=== PATIENT | female | born 1970 | race Hispanic/Latino ===

== ENCOUNTER 2024-11-04 13:59 | Emergency (ER) | payer OTHER ==
[2024-11-04] MEDS ORDERED: TETRACAINE HCL 0.5% 4ML OPTH ONE (14:31)
[2024-11-04] MEDS ORDERED: FLUORESCEIN SODIUM 1 MG/WRAP ONE (14:32)
--- NOTE | 2024-11-04 15:16 | EDPHYS ---
Physician Documentation [facility] Name: Shayla Richey Age: 54 yrs Sex: Female : 1970 Arrival Date: 11/04/2024 Time: 13:59 Bed 2 Private MD: ED Physician Maria Eugenia Chapa HPI: 11/04 17:37 This 54 yrs old Female presents to ER via Ambulatory with complaints of Eye dr5 Injury. 17:37 The patient is experiencing blurred vision, pain, redness, The patient sustained an dr5 abrasion. 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 Patient is a 54-year-old female coming in with a left eye injury after hitting it with a nail that she was trying applied to wall. Patient reports this occurred 1 hour prior to arrival. Patient complaining of tearing and left eye pain with mild blurry vision. Historical: - Allergies: 14:16 No Known Allergies; ll1 - Home Meds: 14:16 None [Active]; ll1 - PMHx: 14:16 None; ll1 - Immunization history:: Adult Immunizations up to date. - Social history:: Smoking status: Patient denies any tobacco usage or history of. ROS: 17:37 Constitutional: as per hpi dr5 Exam: 17:37 Visual Acuity: I have reviewed the nursing documentation. dr5 17:37 Constitutional: This is a well developed, well nourished patient who is awake, alert, and in no acute distress. Head/Face: Normocephalic, atraumatic. Neck: Trachea midline, no thyromegaly or masses palpated, and no cervical lymphadenopathy. Supple, full range of motion without nuchal rigidity, or vertebral point tenderness. No Meningismus. Chest/axilla: Normal chest wall appearance and motion. Nontender with no deformity. No lesions are appreciated. Cardiovascular: Regular rate and rhythm with a normal S1 and S2. Normal PMI, no JVD. No pulse deficits. Back: No spinal tenderness. No costovertebral tenderness. Full range of motion. Skin: Warm, dry with normal turgor. Normal color with no rashes, no lesions, and no evidence of cellulitis. Neuro: Awake and alert, GCS 15, oriented to person, place, time, and situation. Cranial nerves II-XII grossly intact. Motor strength 5/5 in all extremities. Sensory grossly intact. Cerebellar exam normal. Normal gait. 17:37 Eyes: Periorbital structures: appear normal, Pupils: no acute changes, equal, round, and reactive to light and accomodation, Extraocular movements: no acute changes, Conjunctiva: injected, Corneas: abrasion, that is small, at 3 o'clock, foreign body, is not appreciated, a fluorescein strip employed to appreciate the findings, Vital Signs: 14:16 BP 147 / 73; Pulse 63; Resp 16; Temp 98; Pulse Ox 100% ; Height 5 ft. 7 in. ; Pain 8/10;ll1 14:17 BP 147 / 68; Pulse 78; Pulse Ox 99% on R/A; rs6 14:46 BP 131 / 69; Pulse 58; Resp 16; Pulse Ox 99% on R/A; hb 14:16 Pain Scale: Adult ll1 Procedures: 17:37 Eye Exam: Tetracaine and fluorescein strip used. dr5 MDM: 14:14 Medical Screening Exam initiated dr5 17:37 Differential diagnosis: Corneal abrasion of Corneal ulcer of Foreign body in. Data dr5 reviewed: vital signs, nurses notes. 17:37 I considered the following discharge prescriptions or medication management in the dr5 emergency department Medications were administered in the Emergency Department. See MAR. Counseling: I had a detailed discussion with the patient and/or guardian regarding the historical points, exam findings, and any diagnostic results supporting the discharge/admit diagnosis, the presence of at least one elevated blood pressure reading (>120/80) during this emergency department visit, the need for outpatient follow up, for definitive care, an opthalmologist, a family practitioner, to return to the emergency department if symptoms worsen or persist or if there are any questions or concerns that arise at home. ED course: Antibiotics prescribed for patient. Mild corneal abrasion noted at 3:00. Recommended patient follow-up with eye doctor on Wednesday for further management. Blurry vision and pain has resolved and is feeling much better. No puncture wound. Negative Samir sign. All questions answered. Strict ER precautions given.. 11/04 14:36 Order name: Eye Tray; Complete Time: 14:38 dr5 11/04 14:36 Order name: Fluoresene Opth strip; Complete Time: 14:38 dr5 Administered Medications: 14:48 Drug: Tetracaine Ophthalmic Drops 0.5 % 1 drops Ophthalmic once Route: Ophthalmic; bp Site: left eye; Disposition Summary: 11/04/24 15:15 Discharge Ordered Notes: Location: Home dr5 Condition: Stable dr5 Diagnosis - Injury of conjunctiva and corneal abrasion without foreign body, left eye dr5 Followup: dr5 - With: Emergency Department - When: As needed - Reason: Worsening of condition Followup: dr5 - With: Private Physician - When: 1 - 2 days - Reason: Recheck today's complaints, Continuance of care, Re-evaluation by your physician Discharge Instructions: - Discharge Summary Sheet dr5 - Corneal Abrasion dr5 Forms: - Work release form dr5 - Medication Reconciliation Form dr5 - Antibiotic Education dr5 - Prescription Opioid Use dr5 - Patient Portal Instructions dr5 - Leadership Thank You Letter dr5 Prescriptions: - Ocuflox 0.3 % Ophthalmic Drops - instill 2 drops OPHTHALMIC route every 6 hours for 2 days; 15 milliliter; dr5 Refills: 0, Product Selection Permitted - Tramadol 50 mg Oral Tablet - take 1 tablet ORAL route every 8 hours as needed; 12 tablet; Refills: 0, dr5 Product Selection Permitted Signatures: Calderon Muse RN RN bp Aida Irwin RN RN ll1 Chuck Solomon, MACHINE STRIPER-C MACHINE STRIPER-Cdr5 Corrections: (The following items were deleted from the chart) 17:38 17:37 Crutch training provided to patient and/or family. Return demonstration given dr5 dr5
--- NOTE | 2024-11-04 15:16 | ER ---
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 Coronavirus screen: Client denies travel out of the [place] in the last 14 days. At this time, the client does not indicate any symptoms associated with coronavirus-19. Ebola Screen: Patient denies travel to an Ebola-affected area in the 21 days before illness onset. Mechanism of Injury: Penetrating trauma inflicted by nail. Initial Sepsis Screen: Does the patient meet any 2 criteria? No. Patient's initial sepsis screen is negative. Does the patient have a suspected source of infection? No. Patient's initial sepsis screen is negative. Risk Assessment: Do you want to hurt yourself or someone else? Patient reports no desire to harm self or others. Onset of symptoms was November 04, 2024. 14:16 Method Of Arrival: Ambulatory ll1 14:16 Acuity: JOSE JUAN 2 ll1 Triage Assessment: 14:18 General: Appears distressed, Behavior is calm, cooperative, appropriate for age. Pain: ll1 Complains of pain in left eye Pain currently is 8 out of 10 on a pain scale. Quality of pain is described as aching. EENT: Reports pain in left eye L eye red, watering, irritated since incident. Historical: - Allergies: 14:16 No Known Allergies; ll1 - Home Meds: 14:16 None [Active]; ll1 - PMHx: 14:16 None; ll1 - Immunization history:: Adult Immunizations up to date. - Social history:: Smoking status: Patient denies any tobacco usage or history of. Assessment: 15:30 Reassessment: Patient is alert, oriented x 3, equal unlabored respirations, skin aa5 warm/dry/pink. Vital Signs: 14:16 BP 147 / 73; Pulse 63; Resp 16; Temp 98; Pulse Ox 100% ; Height 5 ft. 7 in. ; Pain 8/10;ll1 14:17 BP 147 / 68; Pulse 78; Pulse Ox 99% on R/A; rs6 14:46 BP 131 / 69; Pulse 58; Resp 16; Pulse Ox 99% on R/A; hb 14:16 Pain Scale: Adult ll1 ED Course: 14:01 Patient arrived in ED. sj2 14:11 Chuck Solomon, [facility]5 14:11 Maria Eugenia Chapa MD is Attending Physician. dr5 14:16 Arm band placed on Patient placed in an exam room, on a stretcher. ll1 14:17 warm blanket. rs6 14:18 Triage completed. ll1 14:37 Calderon Muse, RN is Primary Nurse. bp 15:30 No provider procedures requiring assistance completed. Patient did not have IV access aa5 during this emergency room visit. Administered Medications: 14:48 Drug: Tetracaine Ophthalmic Drops 0.5 % 1 drops Ophthalmic once Route: Ophthalmic; bp Site: left eye; Outcome: 15:15 Discharge ordered by MD. dr5 15:30 Discharged to home ambulatory, with significant other, aa5 15:30 Condition: stable 15:30 Discharge instructions given to patient, Instructed on discharge instructions, follow up and referral plans. medication usage, Demonstrated understanding of instructions, follow-up care, medications, Prescriptions given X 2, 15:31 Patient left the ED. aa5 Signatures: Marcela Cain RN RN aa5 Ekta Parnell RN RN Calderon Muse RN RN bp Lewis, Lynsay, RN RN ll1 Dandy Rendon rs6 Joseph Israel sj2 Chuck Solomon FNP-Felicita SPANISH LINGUIST-Cdr5
[2024-11-04 15:52] VITALS: TEMP 98
[2024-11-04 15:53] VITALS: O2SAT 99
[2024-11-04 15:54] VITALS: BP 131/69
== END 2024-11-04 15:31 | disposition home or self-care (01) ==
LOC: ER 13:59
DX: S05.02XA Injury of conjunctiva and corneal abrasion without foreign body, left eye, initial encounter (principal)
CPT/HCPCS: 99283